=== PATIENT | male | born 1960 | race American Indian/Alaskan Native ===

== ENCOUNTER 2018-08-15 11:05 | Inpatient (IN) | payer MEDICARE ==
--- NOTE | 2018-08-15 11:18 | Emergency Department Report ---
Blank Doc - Documentation Documentation: 58 y o male with no PMH presents to ED cc of Vomitting x 2 weeks states he went to PCP 2 weeks ago and was given medicine states its not working DEnies ABd pain, diarrhea, No active vomitting ACC eval
[2018-08-15 11:41] LABS: Basophils # (Auto) 0.1 K/mm3 (0.0-0.1); Basophils % (Auto) 0.8 % (0.0-1.8); Eosinophils # (Auto) 0.1 K/mm3 (0.0-0.4); Eosinophils % (Auto) 1.4 % (0.0-4.3); Hematocrit 45.2 % (35.5-45.6); Hemoglobin 15.3 gm/dl (11.8-15.2); Lymphocytes # (Auto) 1.5 K/mm3 (1.2-5.4); Lymphocytes % (Auto) 17.4 % (13.4-35.0); Mean Corpuscular HGB Conc 34 % (32-34); Mean Corpuscular Volume 104 fl (84-94); Monocytes # (Auto) 0.8 K/mm3 (0.0-0.8); Monocytes % (Auto) 9.1 % (0.0-7.3); Platelet Count 251 K/mm3 (140-440); Red Blood Count 4.36 M/mm3 (3.65-5.03); Red Cell Distribution Width 12.7 % (13.2-15.2)
[2018-08-15] MEDS ORDERED: NACL 0.9% 1000 ML 1,000 ML IV ONE (11:41)
[2018-08-15 11:59] LABS: BUN/Creatinine Ratio 13; Blood Urea Nitrogen 17 mg/dL (9-20); Calcium 9.2 mg/dL (8.4-10.2); Hemolysis Index 8
[2018-08-15 12:10] LABS: Alanine Aminotransferase 32 units/L (7-56); Albumin 4.1 g/dL (3.9-5)
[2018-08-15 12:15] LABS: Bilirubin,Direct < 0.2 mg/dL (0-0.2)
[2018-08-15 12:46] LABS: Bacteria,Urine 1+ /HPF (Negative); Bilirubin,Urine NEG (Negative); Blood,Urine NEG (Negative); Color,Urine Amber (Yellow); Mucus,Urine 3+ /HPF
--- NOTE | 2018-08-15 13:37 | Cat Scan Report ---
CT ABDOMEN PELVIS WITH CONTRAST: HISTORY: Nausea and vomiting for 2 weeks. COMPARISON: none. TECHNIQUE: Helical CT in 1.25mm intervals following IV contrast. Sagittal and coronal reconstructions. FINDINGS: Lung bases: Normal. Liver: There is mild diffuse fatty infiltration of the liver. Multiple liver lesions are identified which appear consistent with cavernous hemangiomas. 3 hemangiomas are identified in the right hepatic lobe with the largest measuring 4.4 cm. There are 2 hemangiomas in the left hepatic lobe measuring up to 1.5 cm. No suspicious liver mass is appreciated. Biliary system: Normal. Pancreas: Normal. Spleen: Normal. Kidneys/ureters/bladder: Normal. Adrenal glands: Normal. Aorta: Normal. Intestines: There is moderate dilatation of the stomach and first and second segments of the duodenum. There is a sharp transition point in the distal transverse duodenum which appears to obstruct. There is an irregular mass like lesion in this area concerning for a neoplasm. Distal to this the small bowel loops and colon are decompressed. Appendix: Normal. Ascites: None. Adenopathy: None. Musculoskeletal: Intact. Moderate degenerative changes in the spine. No suspicious bony lesion. IMPRESSION: There is an obstructing lesion in the transverse duodenum concerning for a neoplasm. Consider direct visualization with endoscopy. Multiple cavernous hemangiomas of the liver.
--- NOTE | 2018-08-15 14:31 | History and Physical Report ---
History of Present Illness Chief complaint: I cant keep anything down History of present illness: 58 YO Male with BPH S/P Prostate Surgery presents to ED for evaluation. Pt states that he has experienced nausea and multiple episodes of vomiting, and inability to tolerate solid food over the past 2 weeks with persistent symptoms over the same time frame. Pt acknowledges 40lbs weight loss over the past 2 months. Pt denies fever, chills, productive cough, CP, Palpitations, known ill contacts, ingestion of food/water from new/different sources. Pt acknowledges family history of cancer, with history of Gastric Cancer in his father. Pt seen and evaluated in ED and found to have Duodenal mass suspicious for malignancy as well as bowel obstruction, as well as UTI. Pt admitted to medical floor. GI consulted in ED. No prior admission for review. No medication listed for reconciliation at time of admission. Past History Past Medical History: other (BPH) Past Surgical History: Other (Cervical spine,Prostate surgery) Social history: , lives with family Family history: cancer Medications and Allergies Allergies Allergy/AdvReac Type Severity Reaction Status Date / Time No Known Allergies Allergy Verified 08/15/18 11:09 Home Medications Medication Instructions Recorded Confirmed Last Taken Type No Known Home Medications [No 08/15/18 08/15/18 Unknown History Reported Home Medications] Review of Systems Constitutional: weight loss, no weight gain, no fever, no chills, no sweats, no night sweats Ears, nose, mouth and throat: no ear pain, no ear discharge, no tinnitis, no decreased hearing, no nose pain, no nasal congestion, no nasal discharge Cardiovascular: no chest pain, no orthopnea, no palpitations, no rapid/irregular heart beat, no edema Respiratory: no cough, no cough with sputum, no excessive sputum, no hemoptysis, no shortness of breath Gastrointestinal: nausea, vomiting, loss of appetite, no abdominal pain, no diarrhea, no hematemesis, no BRBPR, no melena, no hematochezia Genitourinary Male: no hematuria, no flank pain, no discharge, no urinary frequency, no urinary hesitancy Rectal: no pain, no incontinence, no bleeding Musculoskeletal: no neck stiffness, no neck pain, no shooting arm pain, no arm numbness/tingling, no low back pain, no shooting leg pain Integumentary: no rash, no pruritis, no redness, no sores, no wounds, no jaundice Neurological: no transient paralysis, no paralysis, no weakness, no parathesias, no numbness, no tingling Psychiatric: no memory loss, no change in sleep habits, no insomnia, no hypersomnia, no change in appetite, no change in libido Endocrine: no cold intolerance, no heat intolerance, no polyphagia, no excessive thirst, no polydipsia, no polyuria Hematologic/Lymphatic: no easy bruising, no easy bleeding, no lymphadenopathy, no lymphedema Allergic/Immunologic: no urticaria, no persistent infections, no anaphylaxis Exam - Constitutional Vitals: Temp Pulse Resp BP Pulse Ox 97.8 F 112 H 18 115/74 97 08/15/18 11:15 08/15/18 11:15 08/15/18 11:15 08/15/18 11:15 08/15/18 11:15 General appearance: Present: mild distress - EENT Eyes: Present: PERRL ENT: hearing intact, clear oral mucosa - Neck Neck: Present: supple, normal ROM - Respiratory Respiratory effort: normal Respiratory: bilateral: CTA - Cardiovascular Heart Sounds: Present: S1 & S2. Absent: rub, click - Extremities Extremities: pulses symmetrical, No edema Peripheral Pulses: within normal limits - Abdominal General gastrointestinal: Present: soft, non-tender, non-distended, normal bowel sounds Male genitourinary: Present: normal - Integumentary Integumentary: Present: clear, warm, dry - Musculoskeletal Musculoskeletal: gait normal, strength equal bilaterally - Psychiatric Psychiatric: appropriate mood/affect, intact judgment & insight - Neurologic Neurologic: CNII-XII intact, moves all extremities Results - Labs CBC & Chem 7: 08/15/18 11:34 08/15/18 11:34 Labs: Abnormal lab results 08/15/18 08/15/18 08/15/18 Range/Units 11:34 11:34 12:25 Hgb 15.3 H (11.8-15.2) gm/dl MCV 104 H (84-94) fl MCH 35 H (28-32) pg RDW 12.7 L (13.2-15.2) % [place] % (Auto) 9.1 H (0.0-7.3) % Seg Neutrophils % 71.3 H (40.0-70.0) % Potassium 3.3 L (3.6-5.0) mmol/L Chloride 95.4 L (98-107) mmol/L Glucose 118 H (75-100) mg/dL Lipase 70 H (13-60) units/L Urine WBC (Auto) 75.0 H (0.0-6.0) /HPF Assessment and Plan - Patient Problems (1) Duodenal mass Current Visit: Yes Status: Acute Plan to address problem: GI consulted in ED and pending endoscopy and biopsy, IVF resuscitation therapy, NPO after midnight, suspect malignancy. (2) UTI (urinary tract infection) Current Visit: Yes Status: Acute Qualifiers: Encounter type: initial encounter Plan to address problem: IV antibiotic therapy, CBC, urinalysis, (3) Hypokalemia Current Visit: Yes Status: Acute Plan to address problem: Repleted with diet (4) SBO (small bowel obstruction) Current Visit: Yes Status: Acute Plan to address problem: GI consulted, NPI at midnight, CT Abdomen/Pelvis, pending endoscopy in am. NO NGT at this time. Pt does not have abdominal distention, and acknowledges flatus and bowel movement daily (5) DVT prophylaxis Current Visit: Yes Status: Acute Plan to address problem: SCD to BLE while in bed, Pt ambulating independently and without restriction
[2018-08-15] MEDS ORDERED: ATIVAN IV ONE (14:32)
[2018-08-15] MEDS ORDERED: MORPHINE IV ONE (14:32)
[2018-08-15] MEDS ORDERED: PROVENTIL IH PRN (14:33)
[2018-08-15] MEDS ORDERED: TYLENOL PO PRN (14:33)
[2018-08-15] MEDS ORDERED: SODIUM CHLORIDE FLUSH SYRINGE 10 ML IV PRN (14:33)
[2018-08-15] MEDS ORDERED: ZOFRAN IV PRN (14:33)
--- NOTE | 2018-08-15 14:36 | Emergency Department Report ---
ED N/V/D HPI - General Chief complaint: Abdominal Pain Stated complaint: VOMITING Time Seen by Provider: 08/15/18 11:16 Source: patient Mode of arrival: Ambulatory Limitations: No Limitations - History of Present Illness Initial comments: Patient is a 58-year-old [place] male who is presenting with 2 weeks of nausea vomiting and inability to keep anything down. Patient has had some mild weight loss over this timeframe as well. Patient states he is still passing flatus but has not had a bowel movement in approximately a week. Patient denies any a bdominal pain at this time. Patient states he does have some mild weakness is developing secondary to not eating. - Related Data Allergies Allergy/AdvReac Type Severity Reaction Status Date / Time No Known Allergies Allergy Verified 08/15/18 11:09 ED Review of Systems ROS: Stated complaint: VOMITING Other details as noted in HPI Comment: All other systems reviewed and negative ED Past Medical Hx - Past Medical History Previous Medical History?: No - Surgical History Past Surgical History?: Yes Additional Surgical History: cervical spine surgery, prostate surgery - Social History Smoking Status: Never Smoker Substance Use Type: Marijuana ED Physical Exam - General Limitations: No Limitations General appearance: alert, in no apparent distress - Head Head exam: Present: atraumatic, normocephalic - Eye Eye exam: Present: normal appearance. Absent: PERRL, EOMI - ENT ENT exam: Present: mucous membranes moist - Neck Neck exam: Present: normal inspection - Respiratory Respiratory exam: Present: normal lung sounds bilaterally. Absent: respiratory distress, wheezes, rales, rhonchi - Cardiovascular Cardiovascular Exam: Present: regular rate, normal rhythm. Absent: systolic murmur, diastolic murmur, rubs, gallop - GI/Abdominal GI/Abdominal exam: Present: soft, normal bowel sounds, hypoactive bowel sounds. Absent: distended, tenderness, guarding, rebound - Rectal Rectal exam: Present: deferred - Extremities Exam Extremities exam: Present: normal inspection - Back Exam Back exam: Present: normal inspection - Neurological Exam Neurological exam: Present: alert, oriented X3 - Psychiatric Psychiatric exam: Present: normal affect, normal mood - Skin Skin exam: Present: warm, dry, intact, normal color. Absent: rash ED Course Vital Signs 08/15/18 11:15 Temperature 97.8 F Pulse Rate 112 H Respiratory 18 Rate Blood Pressure 115/74 O2 Sat by Pulse 97 Oximetry ED Medical Decision Making - Lab Data Result diagrams: 08/15/18 11:34 08/15/18 11:34 Labs 08/15/18 08/15/18 08/15/18 11:34 11:34 12:25 WBC 8.8 RBC 4.36 Hgb 15.3 H Hct 45.2 MCV 104 H MCH 35 H MCHC 34 RDW 12.7 L Plt Count 251 Lymph % (Auto) 17.4 [place] % (Auto) 9.1 H Eos % (Auto) 1.4 Baso % (Auto) 0.8 Lymph # 1.5 [place] # 0.8 Eos # 0.1 Baso # 0.1 Seg Neutrophils % 71.3 H Seg Neutrophils # 6.3 Sodium 138 Potassium 3.3 L Chloride 95.4 L Carbon Dioxide 28 Anion Gap 18 BUN 17 Creatinine 1.3 Estimated GFR > 60 BUN/Creatinine Ratio 13 Glucose 118 H Calcium 9.2 Total Bilirubin 0.70 Direct Bilirubin < 0.2 AST 18 ALT 32 Alkaline Phosphatase 69 Total Protein 8.1 Albumin 4.1 Albumin/Globulin Ratio 1.0 Lipase 70 H Urine Color [place] Urine Turbidity Slightly-cloudy Urine pH 5.0 Ur Specific [place] 1.030 Urine Protein 30 mg/dl Urine Glucose (UA) Neg Urine Ketones 20 Urine Blood Neg Urine Nitrite Neg Urine Bilirubin Neg Urine Urobilinogen 4.0 Ur Leukocyte Esterase Mod Urine WBC (Auto) 75.0 H Urine RBC (Auto) 9.0 U Epithel Cells (Auto) 3.0 Urine Bacteria (Auto) 1+ Urine Mucus 3+ - Radiology Data Referring Physician: LISA HERNDON Patient Name: ROSE GREEN Date of : 1960 Sex: Male Report Date: 2018-08-15 Report Status: Finalized Findings [facility] [address] [place] [address] Cat Scan Report Signed Patient: ROSE GREEN MR#: [id number] : 1960 Acct:[id number] Age/Sex: 58 / M ADM Date: 08/15/18 Loc: ED Attending Dr: Ordering Physician: LISA HERNDON MD Date of Service: 08/15/18 Procedure(s): CT abdomen pelvis w con Accession Number(s): [id number] cc: LISA HERNDON MD CT ABDOMEN PELVIS WITH CONTRAST: HISTORY: Nausea and vomiting for 2 weeks. COMPARISON: none. TECHNIQUE: Helical CT in 1.25mm intervals following IV contrast. Sagittal and coronal reconstructions. FINDINGS: Lung bases: Normal. Liver: There is mild diffuse fatty infiltration of the liver. Multiple liver lesions are identified which appear consistent with cavernous hemangiomas. 3 hemangiomas are identified in the right hepatic lobe with the largest measuring 4.4 cm. There are 2 hemangiomas in the left hepatic lobe measuring up to 1.5 cm. No suspicious liver mass is appreciated. Biliary system: Normal. Pancreas: Normal. Spleen: Normal. Kidneys/ureters/bladder: Normal. Adrenal glands: Normal. Aorta: Normal. Intestines: There is moderate dilatation of the stomach and first and second segments of the duodenum. There is a sharp transition point in the distal transverse duodenum which appears to obstruct. There is an irregular mass like lesion in this area concerning for a neoplasm. Distal to this the small bowel loops and colon are decompressed. Appendix: Normal. Ascites: None. Adenopathy: None. Musculoskeletal: Intact. Moderate degenerative changes in the spine. No suspicious bony lesion. IMPRESSION: There is an obstructing lesion in the transverse duodenum concerning for a neoplasm. Consider direct visualization with endoscopy. Multiple cavernous hemangiomas of the liver. Transcribed By: TTR Dictated By: WILMA VARGAS JR, MD Electronically Authenticated By: WILMA VARGAS JR, MD Signed Date/Time: 08/15/18 1332 DD/ 1326 TD/TT: 08/15/18 1332 - Medical Decision Making Patient is a 58-year-old -[place] male who is presenting with nausea and vomiting for 2 weeks. Patient had a CT scan that shows he does have obstructive area at the duodenum. This is likely a tumor. Patient will be admitted to the hospitalist service and GI has been consulted. Critical care attestation.: If time is entered above; I have spent that time in minutes in the direct care of this critically ill patient, excluding procedure time. ED Disposition Clinical Impression: SBO (small bowel obstruction), Duodenal anomaly Disposition: OP ADMIT IP TO THIS HOSP Is pt being admited?: Yes Does the pt Need Aspirin: No Condition: Stable Time of Disposition: 14:36
[2018-08-15] MEDS: LEVAQUIN 500MG/100ML 500 MG/100 ML BAG IV SCH (14:49)
--- NOTE | 2018-08-15 15:16 | Gastroenterology Consultation ---
<FLOYD BRAND - Last Filed: 08/15/18 15:24> History of Present Illness - Reason for Consult Consult date: 08/15/18 duodenal mass with obstruction Requesting physician: LISA HERNDON - History of Present Illness Patient is a 58 y/o male with PMH of BPH and chronic back pain who presented to ED with c/o N/V x 2 weeks with associated inability to tolerate PO, wt loss (~15-20lbs), and change in bowel habit (constipation). Upon admission, he underwent an abdominal CT with findings suggestive of an obstructing duodenal mall with concern for malignancy to which GI has been consulted. This afternoon patient was sitting on the side of the stretcher w/o acute distress and at bedside. Reports N/V after any PO intake x 2 weeks. Denies fever, CP, SOB, abdominal pain, dysphagia, odynophagia, or signs of bleeding. No hx of PUD or previous EGD. Fhx of gastric cancer with his father. Past History Past Medical History: other (BPH, chronic back pain) Past Surgical History: hernia repair, Other (Cervical spine,Prostate surgery) Social history: , lives with family Family history: cancer (gastric with father) Medications and Allergies Allergies Allergy/AdvReac Type Severity Reaction Status Date / Time No Known Allergies Allergy Verified 08/15/18 11:09 Home Medications Medication Instructions Recorded Confirmed Last Taken Type No Known Home Medications [No 08/15/18 08/15/18 Unknown History Reported Home Medications] Active Meds: Active Medications Acetaminophen (Tylenol) 650 mg PO Q4H PRN PRN Reason: Pain MILD(1-3)/Fever >100.5/JOSE Albuterol (Proventil) 2.5 mg IH Q4HRT PRN PRN Reason: Shortness Of Breath Levofloxacin/Dextrose (Levaquin 500mg/100ml) 500 mg in 100 mls @ 100 mls/hr IV Q24HR JACQUELYN; Protocol Last Admin: 08/15/18 14:49 Dose: 100 mls/hr Documented by: Ondansetron HCl (Zofran) 4 mg IV Q8H PRN PRN Reason: Nausea And Vomiting Sodium Chloride (Sodium Chloride Flush Syringe 10 Ml) 10 ml IV BID JACQUELYN Sodium Chloride (Sodium Chloride Flush Syringe 10 Ml) 10 ml IV PRN PRN PRN Reason: LINE FLUSH medications reviewed/updated as required Review of Systems - Review of Systems All systems: negative Constitutional: weight loss Gastrointestinal: nausea, vomiting, constipation Exam - Constitutional Vital Signs: Temp Pulse Resp BP Pulse Ox 97.8 F 112 H 18 115/74 97 08/15/18 11:15 08/15/18 11:15 08/15/18 11:15 08/15/18 11:15 08/15/18 11:15 General appearance: no acute distress - Respiratory Respiratory effort: normal Respiratory: bilateral: CTA - Cardiovascular Rhythm: regular - Gastrointestinal General gastrointestinal: Present: soft, non-tender, distended (slight), hypoactive bowel sounds - Neurologic Neurological: alert and oriented x3 - Labs CBC & Chem 7: 08/15/18 11:34 08/15/18 11:34 Lab Results: Laboratory Results - last 24 hr 08/15/18 08/15/18 08/15/18 11:34 11:34 12:25 WBC 8.8 RBC 4.36 Hgb 15.3 H Hct 45.2 MCV 104 H MCH 35 H MCHC 34 RDW 12.7 L Plt Count 251 Lymph % (Auto) 17.4 [place] % (Auto) 9.1 H Eos % (Auto) 1.4 Baso % (Auto) 0.8 Lymph # 1.5 [place] # 0.8 Eos # 0.1 Baso # 0.1 Seg Neutrophils % 71.3 H Seg Neutrophils # 6.3 Sodium 138 Potassium 3.3 L Chloride 95.4 L Carbon Dioxide 28 Anion Gap 18 BUN 17 Creatinine 1.3 Estimated GFR > 60 BUN/Creatinine Ratio 13 Glucose 118 H Calcium 9.2 Total Bilirubin 0.70 Direct Bilirubin < 0.2 AST 18 ALT 32 Alkaline Phosphatase 69 Total Protein 8.1 Albumin 4.1 Albumin/Globulin Ratio 1.0 Lipase 70 H Urine Color [place] Urine Turbidity Slightly-cloudy Urine pH 5.0 Ur Specific [place] 1.030 Urine Protein 30 mg/dl Urine Glucose (UA) Neg Urine Ketones 20 Urine Blood Neg Urine Nitrite Neg Urine Bilirubin Neg Urine Urobilinogen 4.0 Ur Leukocyte Esterase Mod Urine WBC (Auto) 75.0 H Urine RBC (Auto) 9.0 U Epithel Cells (Auto) 3.0 Urine Bacteria (Auto) 1+ Urine Mucus 3+ Assessment and Plan 1.N/V 2.inability to tolerate PO 3.wt loss 4.duodenal obstructing mass seen on CT 5.Fhx of gastric CA (father) -EGD tomorrow for further evaluation of duodenal mass -Keep NPO -NGT to LIS -start on PPI -recommend surgery consult -continue supportive care -will follow <PIO PARR - Last Filed: 08/15/18 16:03> Medications and Allergies Active Meds: Active Medications Acetaminophen (Tylenol) 650 mg PO Q4H PRN PRN Reason: Pain MILD(1-3)/Fever >100.5/JOSE Albuterol (Proventil) 2.5 mg IH Q4HRT PRN PRN Reason: Shortness Of Breath Levofloxacin/Dextrose (Levaquin 500mg/100ml) 500 mg in 100 mls @ 100 mls/hr IV Q24HR JACQUELYN; Protocol Last Admin: 08/15/18 14:49 Dose: 100 mls/hr Documented by: Ondansetron HCl (Zofran) 4 mg IV Q8H PRN PRN Reason: Nausea And Vomiting Pantoprazole Sodium (Protonix) 40 mg IV BID JACQUELYN Sodium Chloride (Sodium Chloride Flush Syringe 10 Ml) 10 ml IV BID JACQUELYN Sodium Chloride (Sodium Chloride Flush Syringe 10 Ml) 10 ml IV PRN PRN PRN Reason: LINE FLUSH Exam - Constitutional Vital Signs: Temp Pulse Resp BP Pulse Ox 98.5 F 104 H 16 106/82 97 08/15/18 15:17 08/15/18 15:17 08/15/18 15:17 08/15/18 15:17 08/15/18 15:17 - Labs CBC & Chem 7: 08/15/18 11:34 08/15/18 11:34 Lab Results: Laboratory Results - last 24 hr 08/15/18 08/15/18 08/15/18 11:34 11:34 12:25 WBC 8.8 RBC 4.36 Hgb 15.3 H Hct 45.2 MCV 104 H MCH 35 H MCHC 34 RDW 12.7 L Plt Count 251 Lymph % (Auto) 17.4 [place] % (Auto) 9.1 H Eos % (Auto) 1.4 Baso % (Auto) 0.8 Lymph # 1.5 [place] # 0.8 Eos # 0.1 Baso # 0.1 Seg Neutrophils % 71.3 H Seg Neutrophils # 6.3 Sodium 138 Potassium 3.3 L Chloride 95.4 L Carbon Dioxide 28 Anion Gap 18 BUN 17 Creatinine 1.3 Estimated GFR > 60 BUN/Creatinine Ratio 13 Glucose 118 H Calcium 9.2 Total Bilirubin 0.70 Direct Bilirubin < 0.2 AST 18 ALT 32 Alkaline Phosphatase 69 Total Protein 8.1 Albumin 4.1 Albumin/Globulin Ratio 1.0 Lipase 70 H Urine Color [place] Urine Turbidity Slightly-cloudy Urine pH 5.0 Ur Specific [place] 1.030 Urine Protein 30 mg/dl Urine Glucose (UA) Neg Urine Ketones 20 Urine Blood Neg Urine Nitrite Neg Urine Bilirubin Neg Urine Urobilinogen 4.0 Ur Leukocyte Esterase Mod Urine WBC (Auto) 75.0 H Urine RBC (Auto) 9.0 U Epithel Cells (Auto) 3.0 Urine Bacteria (Auto) 1+ Urine Mucus 3+ Assessment and Plan Pt seen and examined. Plan as noted.
--- NOTE | 2018-08-15 15:28 | Consultation ---
History of Present Illness Consult date: 08/15/18 Chief complaint: n/v - History of present illness History of present illness: 58 yo M with no PMhx presents with n/v x 2 weeks, inability to tolerate PO, and inability to pass flatus. He states this started suddenly as has gradually gotten worse. He has lost 20 lbs or more during this time due to inability to eat. He denies abdominal pain. He has never had a prior episode like this. He denies f/c, cp, sob. He has had some small BMs. Never had a cscope. Past History Past Medical History: other (BPH) Past Surgical History: Other (Cervical spine,Prostate surgery) Social history: , lives with family Family history: cancer (father - stomach vs lung) Medications and Allergies Allergies Allergy/AdvReac Type Severity Reaction Status Date / Time No Known Allergies Allergy Verified 08/15/18 11:09 Home Medications Medication Instructions Recorded Confirmed Last Taken Type No Known Home Medications [No 08/15/18 08/15/18 Unknown History Reported Home Medications] Active Meds: Active Medications Acetaminophen (Tylenol) 650 mg PO Q4H PRN PRN Reason: Pain MILD(1-3)/Fever >100.5/JOSE Albuterol (Proventil) 2.5 mg IH Q4HRT PRN PRN Reason: Shortness Of Breath Levofloxacin/Dextrose (Levaquin 500mg/100ml) 500 mg in 100 mls @ 100 mls/hr IV Q24HR JACQUELYN; Protocol Last Admin: 08/15/18 14:49 Dose: 100 mls/hr Documented by: Ondansetron HCl (Zofran) 4 mg IV Q8H PRN PRN Reason: Nausea And Vomiting Pantoprazole Sodium (Protonix) 40 mg IV BID JACQUELYN Sodium Chloride (Sodium Chloride Flush Syringe 10 Ml) 10 ml IV BID JACQUELYN Sodium Chloride (Sodium Chloride Flush Syringe 10 Ml) 10 ml IV PRN PRN PRN Reason: LINE FLUSH Review of Systems All systems: negative (10 pt ROS performed and negative except for that listed in HPI) Exam Vital Signs Temp Pulse Resp BP Pulse Ox 97.8 F 112 H 18 115/74 97 08/15/18 11:15 08/15/18 11:15 08/15/18 11:15 08/15/18 11:15 08/15/18 11:15 Narrative exam: Gen: AAOx3. NAD ENT: NO scleral icterus or conjunctival pallor CV: s1, S2+ resp; even and unlabored Abd: soft, NT, ND Ext: no c/c/e Results - Labs 08/15/18 11:34 08/15/18 11:34 Abnormal lab results 08/15/18 08/15/18 08/15/18 Range/Units 11:34 11:34 12:25 Hgb 15.3 H (11.8-15.2) gm/dl MCV 104 H (84-94) fl MCH 35 H (28-32) pg RDW 12.7 L (13.2-15.2) % [place] % (Auto) 9.1 H (0.0-7.3) % Seg Neutrophils % 71.3 H (40.0-70.0) % Potassium 3.3 L (3.6-5.0) mmol/L Chloride 95.4 L (98-107) mmol/L Glucose 118 H (75-100) mg/dL Lipase 70 H (13-60) units/L Urine WBC (Auto) 75.0 H (0.0-6.0) /HPF Diabetes panel 08/15/18 Range/Units 11:34 Sodium 138 (137-145) mmol/L Potassium 3.3 L (3.6-5.0) mmol/L Chloride 95.4 L (98-107) mmol/L Carbon Dioxide 28 (22-30) mmol/L BUN 17 (9-20) mg/dL Creatinine 1.3 (0.8-1.5) mg/dL Glucose 118 H (75-100) mg/dL Calcium 9.2 (8.4-10.2) mg/dL AST 18 (5-40) units/L ALT 32 (7-56) units/L Alkaline Phosphatase 69 (35-129) units/L Total Protein 8.1 (6.3-8.2) g/dL Albumin 4.1 (3.9-5) g/dL Calcium panel 08/15/18 Range/Units 11:34 Calcium 9.2 (8.4-10.2) mg/dL Albumin 4.1 (3.9-5) g/dL Pituitary panel 08/15/18 Range/Units 11:34 Sodium 138 (137-145) mmol/L Potassium 3.3 L (3.6-5.0) mmol/L Chloride 95.4 L (98-107) mmol/L Carbon Dioxide 28 (22-30) mmol/L BUN 17 (9-20) mg/dL Creatinine 1.3 (0.8-1.5) mg/dL Glucose 118 H (75-100) mg/dL Calcium 9.2 (8.4-10.2) mg/dL Adrenal panel 08/15/18 Range/Units 11:34 Sodium 138 (137-145) mmol/L Potassium 3.3 L (3.6-5.0) mmol/L Chloride 95.4 L (98-107) mmol/L Carbon Dioxide 28 (22-30) mmol/L BUN 17 (9-20) mg/dL Creatinine 1.3 (0.8-1.5) mg/dL Glucose 118 H (75-100) mg/dL Calcium 9.2 (8.4-10.2) mg/dL Total Bilirubin 0.70 (0.1-1.2) mg/dL AST 18 (5-40) units/L ALT 32 (7-56) units/L Alkaline Phosphatase 69 (35-129) units/L Total Protein 8.1 (6.3-8.2) g/dL Albumin 4.1 (3.9-5) g/dL - Imaging CT scan - abdomen: report reviewed, image reviewed CT scan - pelvis: report reviewed, image reviewed Assessment and Plan 58 yo M with obstructing duodenal mass Plan: 1. Place NGT and keep to LIWS 2. NPO 3. IVF 4. EGD scheduled for tomorrow 5. CXR to r/o metastatic disease 6. No evidence of metastatic disease on CT A/P. Will follow up on results of endoscopy. 7. Explained results and plan to patient and his . Thank you, please call with questions
[2018-08-15] MEDS: PROTONIX IV SCH ×2 (18:52→22:00)
--- NOTE | 2018-08-15 21:49 | XRay Report ---
PROCEDURE: XR CHEST ROUTINE 2V TECHNIQUE: PA and lateral chest radiographs were obtained. HISTORY: obstructing duodenal mass, r/o mets COMPARISONS: None. FINDINGS: Heart: Normal. Mediastinum/Vessels: Normal. Lungs/Pleural space: Normal. Bony thorax: No acute osseous abnormality. IMPRESSION: Normal examination. This document is electronically signed by Kev Mayorga MD., August 15 2018 09:22:17 PM ET
[2018-08-15] MEDS: SODIUM CHLORIDE FLUSH SYRINGE 10 ML IV SCH (22:00)
[2018-08-16] MEDS: PROTONIX IV SCH ×2 (09:29→21:53)
[2018-08-16] MEDS: LEVAQUIN 500MG/100ML 500 MG/100 ML BAG IV SCH (09:29)
[2018-08-16] MEDS: SODIUM CHLORIDE FLUSH SYRINGE 10 ML IV SCH ×2 (09:30→21:53)
--- NOTE | 2018-08-16 11:09 | Event Note ---
Date: 08/16/18 Per nursing notes, NGT was inserted but patient requested it be removed immediately. NGT was not reinserted overnight. Spoke with RN this am and i nstructed them to place NGT this morning because patient will not be able to have endoscopy without decompressing the stomach.
[2018-08-16 13:15] LABS: BUN/Creatinine Ratio 14; Blood Urea Nitrogen 14 mg/dL (9-20); Calcium 9.1 mg/dL (8.4-10.2); Hemolysis Index 9
--- NOTE | 2018-08-16 13:48 | Progress Note ---
Assessment and Plan - Patient Problems (1) Duodenal mass Current Visit: Yes Status: Acute Plan to address problem: Plan no mass no evidence of metastatic disease on CT or chest x-ray. Obstructive lesion in the transverse duodenum. Scheduled for EGD to evaluate neoplasm. Performed in the a.m. (2) Hypokalemia Current Visit: Yes Status: Acute Plan to address problem: Patient had NG tube no current IV fluids. Most likely has lost K via the gastrointestinal tract. We'll add potassium in D5 normal saline. Repeat labs in a.m. Await EGD today. (3) SBO (small bowel obstruction) Current Visit: Yes Status: Acute Plan to address problem: G-tube suctioning GI following. Obtain electrolytes in a.m. History Interval history: Patient is without pain today. Abdomen feels better. Still NG tube suctioning. Scheduled for EGD in the a.m. Set L spoke with at bedside all questions and concerns answered to their satisfaction. Hospitalist Physical - Constitutional Vitals: Temp Pulse Resp BP Pulse Ox 97.9 F 81 18 112/85 97 08/16/18 13:19 08/16/18 13:19 08/16/18 13:19 08/16/18 13:19 08/16/18 13:19 General appearance: Present: mild distress - EENT Eyes: Present: PERRL, EOM intact ENT: hearing intact, clear oral mucosa, dentition normal, other (NG tube to suctioning.) - Neck Neck: Present: supple, normal ROM - Respiratory Respiratory effort: normal Respiratory: bilateral: CTA - Cardiovascular Rhythm: regular Heart Sounds: Present: S1 & S2 - Extremities Extremities: no ischemia, pulses intact, pulses symmetrical, No edema, normal temperature, normal color Peripheral Pulses: within normal limits - Abdominal General gastrointestinal: other (slightly distended hypoactive bowel sounds. Tender only to deep palpation.) - Integumentary Integumentary: Present: clear, warm, dry - Psychiatric Psychiatric: appropriate mood/affect, intact judgment & insight, memory intact - Neurologic Neurologic: CNII-XII intact, focal deficits, moves all extremities Results - Labs CBC & Chem 7: 08/15/18 11:34 08/16/18 12:07 Labs: Laboratory Last Values WBC 8.8 K/mm3 (4.5-11.0) 08/15/18 11:34 RBC 4.36 M/mm3 (3.65-5.03) 08/15/18 11:34 Hgb 15.3 gm/dl (11.8-15.2) H 08/15/18 11:34 Hct 45.2 % (35.5-45.6) 08/15/18 11:34 MCV 104 fl (84-94) H 08/15/18 11:34 MCH 35 pg (28-32) H 08/15/18 11:34 MCHC 34 % (32-34) 08/15/18 11:34 RDW 12.7 % (13.2-15.2) L 08/15/18 11:34 Plt Count 251 K/mm3 (140-440) 08/15/18 11:34 Lymph % (Auto) 17.4 % (13.4-35.0) 08/15/18 11:34 Bollinger % (Auto) 9.1 % (0.0-7.3) H 08/15/18 11:34 Eos % (Auto) 1.4 % (0.0-4.3) 08/15/18 11:34 Baso % (Auto) 0.8 % (0.0-1.8) 08/15/18 11:34 Lymph # 1.5 K/mm3 (1.2-5.4) 08/15/18 11:34 Bollinger # 0.8 K/mm3 (0.0-0.8) 08/15/18 11:34 Eos # 0.1 K/mm3 (0.0-0.4) 08/15/18 11:34 Baso # 0.1 K/mm3 (0.0-0.1) 08/15/18 11:34 Seg Neutrophils % 71.3 % (40.0-70.0) H 08/15/18 11:34 Seg Neutrophils # 6.3 K/mm3 (1.8-7.7) 08/15/18 11:34 Sodium 141 mmol/L (137-145) 08/16/18 12:07 Potassium 3.6 mmol/L (3.6-5.0) 08/16/18 12:07 Chloride 100.3 mmol/L (98-107) 08/16/18 12:07 Carbon Dioxide 21 mmol/L (22-30) L D 08/16/18 12:07 23 mmol/L 08/16/18 12:07 BUN 14 mg/dL (9-20) 08/16/18 12:07 1.0 mg/dL (0.8-1.5) 08/16/18 12:07 Estimated GFR > 60 ml/min 08/16/18 12:07 14 % 08/16/18 12:07 Glucose 86 mg/dL (75-100) 08/16/18 12:07 Calcium 9.1 mg/dL (8.4-10.2) 08/16/18 12:07 Phosphorus 3.10 mg/dL (2.5-4.5) 08/16/18 12:07 Magnesium 2.20 mg/dL (1.7-2.3) 08/16/18 12:07 0.70 mg/dL (0.1-1.2) 08/15/18 11:34 < 0.2 mg/dL (0-0.2) 08/15/18 11:34 AST 18 units/L (5-40) 08/15/18 11:34 ALT 32 units/L (7-56) 08/15/18 11:34 69 units/L (35-129) 08/15/18 11:34 8.1 g/dL (6.3-8.2) 08/15/18 11:34 4.1 g/dL (3.9-5) 08/15/18 11:34 1.0 % 08/15/18 11:34 70 units/L (13-60) H 08/15/18 11:34 Aylin (Yellow) 08/15/18 12:25 Slightly-cloudy (Clear) 08/15/18 12:25 5.0 (5.0-7.0) 08/15/18 12:25 Ur Specific [place] 1.030 (1.003-1.030) 08/15/18 12:25 30 mg/dl mg/dL (Negative) 08/15/18 12:25 Neg mg/dL (Negative) 08/15/18 12:25 20 mg/dL (Negative) 08/15/18 12:25 Neg (Negative) 08/15/18 12:25 Neg (Negative) 08/15/18 12:25 Neg (Negative) 08/15/18 12:25 4.0 mg/dL (<2.0) 08/15/18 12:25 Ur Leukocyte Esterase Mod (Negative) 08/15/18 12:25 75.0 /HPF (0.0-6.0) H 08/15/18 12:25 9.0 /HPF (0.0-6.0) 08/15/18 12:25 U Epithel Cells (Auto) 3.0 /HPF (0-13.0) 08/15/18 12:25 1+ /HPF (Negative) 08/15/18 12:25 3+ /HPF 08/15/18 12:25 Active Medications - Current Medications Current Medications: Generic Name Dose Route Start Last Admin Trade Name Freq PRN Reason Stop Dose Admin Acetaminophen 650 mg 08/15/18 14:33 Tylenol PO Q4H PRN Pain MILD(1-3)/Fever >100.5/JOSE Albuterol 2.5 mg 08/15/18 14:33 Proventil IH Q4HRT PRN Shortness Of Breath Levofloxacin/Dextrose 500 mg in 100 mls @ 100 mls/hr 08/15/18 15:00 08/16/18 09:29 Levaquin 500mg/100ml IV 100 mls/hr Q24HR JACQUELYN Administration Protocol Potassium Chloride/Dextrose/Sod Cl 20 meq in 1,000 mls @ 75 mls/hr 08/16/18 12:00 D5w/Ns W/Kcl 20meq IV 08/18/18 01:19 DIRECT JACQUELYN Sodium Chloride 1,000 mls @ 50 mls/hr 08/16/18 14:00 08/16/18 13:24 Nacl 0.9% 1000 Ml IV 08/17/18 13:59 50 mls/hr DIRECT JACQUELYN Administration Ondansetron HCl 4 mg 08/15/18 14:33 Zofran IV Q8H PRN Nausea And Vomiting Pantoprazole Sodium 40 mg 08/15/18 16:00 08/16/18 09:29 Protonix IV 40 mg BID JACQUELYN Administration Sodium Chloride 10 ml 08/15/18 22:00 08/16/18 09:30 Sodium Chloride Flush Syringe 10 Ml IV 10 ml BID JACQUELYN Administration Sodium Chloride 10 ml 08/15/18 14:33 Sodium Chloride Flush Syringe 10 Ml IV PRN PRN LINE FLUSH
[2018-08-16] MEDS ORDERED: NACL 0.9% 1000 ML 1,000 ML IV SCH (14:00)
[2018-08-16] MEDS ORDERED: DIPRIVAN 10 MG/ML IV ONE (14:35)
[2018-08-16] MEDS ORDERED: VERSED ONE (14:35)
--- NOTE | 2018-08-16 14:38 | Anesthesia Day of Surgery ---
Anesthesia Day of Surgery - Day of Surgery Patient Examined: Yes Patient H&P Reviewed: Yes Patient is NPO: Yes
--- NOTE | 2018-08-16 14:38 | Anesthesia Consultation ---
Anesthesia Consult and Med Hx Date of service: 08/16/18 - Airway Anesthetic Teeth Evaluation: Good ROM Head & Neck: Adequate Mental/Hyoid Distance: Adequate Mallampati Class: Class II Intubation Access Assessment: Good - Pulmonary Exam CTA: Yes - Cardiac Exam Cardiac Exam: RRR - Pre-Operative Health Status ASA Pre-Surgery Classification: ASA3 Proposed Anesthetic Plan: MAC (Pt with duodenal obstruction for EGD) - Pulmonary Hx Asthma: No COPD: No Hx Pneumonia: No - Endocrine Hx End Stage Renal Disease: No
--- NOTE | 2018-08-16 15:06 | Post Operative Note ---
Pre-op diagnosis: Duodenal mass Post-op diagnosis: same Findings: 1. Normal esophagus 2. Stomach normal, with 350 ml bile suctioned out. 3. Obstructing friable duodenal mass with edema in 4th portion of duodenum, distal to the ampulla. Difficult to see well. Biopsied. Procedure: EGD with biopsy Anesthesia: MAC Surgeon: PIO PARR Estimated blood loss: minimal Pathology: list (1. Duodenal mass) Specimen disposition: to lab Condition: stable Disposition: floor (F/u pathology. Surgical management)
--- NOTE | 2018-08-16 15:58 | Operative Report ---
UPPER ENDOSCOPY REPORT PROCEDURE: Upper endoscopy with biopsy. PREOPERATIVE DIAGNOSIS: Duodenal mass. POSTOPERATIVE DIAGNOSIS: Duodenal mass. SEDATION: MAC by Anesthesia. HISTORY: The patient is a 58-year-old man who presented with a 2-week history of nausea and vomiting along with weight loss. CT shows mass in the duodenum with proximal obstruction. DESCRIPTION OF PROCEDURE: Indications, risks, and benefits were explained and consent was obtained. The patient was placed in left lateral decubitus position. Prior to the procedure, he had a NG tube placed where a total of 1.7 liters of bile were suctioned out. Scope was then advanced into the mouth and oropharynx into the descending duodenum. Scope was then gradually withdrawn with close inspection of mucosa. FINDINGS: 1. Normal appearing esophagus. 2. Gastric lumen at 350 mL of bile that were aspirated out. The gastric mucosa, however, looked normal throughout the whole stomach. 3. Normal appearing duodenal bulb. 4. In the fourth portion of the duodenum, well past the ampulla, the lumen was edematous and scope could not be readily passed through this area. It was friable. Biopsies were obtained. This was consistent with an obstructing process, though no firm mass was clearly identified. The patient tolerated the procedure well without immediate complication. IMPRESSION: 1. Fourth portion of the duodenum has obstruction consistent with probable mass that was friable. Biopsies were obtained. However, the area was edematous, precluding detailed evaluation. 2. Otherwise, normal endoscopy. PLAN: 1. Follow up biopsies. 2. Surgical management for possible resection or bypass. JOB# [id number] HRC/NTS
[2018-08-16] MEDS: D5W/NS W/KCL 20MEQ 20 MEQ/1,000 ML BAG IV SCH (16:12)
--- NOTE | 2018-08-16 17:05 | Progress Note ---
Assessment and Plan 58 yo M with obstructing duodenal mass s/p EGD 08/16/18 - 1. Normal esophagus 2. Stomach normal, with 350 ml bile suctioned out. 3. Obstructing friable duodenal mass with edema in 4th portion of duodenum, distal to the ampulla. Difficult to see well. Biopsied. Plan: 1. Keep NGT to LIWS 2. NPO 3. IVF 4. No evidence of metastatic disease on CT scan A/P or CXR 5. Recommend transfer to tertiary care center for surgical evaluation and treatment. Pt given option for [place] [facility] and [facility] and prefers [place] because it is closer to home. Will start transfer process in am. Thank you, please call with questions Subjective Date of service: 08/16/18 Narrative: Pt seen and examined. s/p endoscopy. Objective Vital Signs - 12hr 08/16/18 08/16/18 08/16/18 05:48 08:04 11:16 Temperature 98.6 F 98.1 F Pulse Rate 70 76 Respiratory 18 22 Rate Blood Pressure 104/78 113/82 O2 Sat by Pulse 96 97 98 Oximetry 08/16/18 08/16/18 08/16/18 13:15 13:19 14:55 Temperature 97.9 F 97.9 F 97 F L Pulse Rate 81 81 91 H Respiratory 18 18 16 Rate Blood Pressure 112/85 112/85 121/76 O2 Sat by Pulse 97 97 97 Oximetry 08/16/18 08/16/18 08/16/18 15:06 15:20 15:36 Temperature Pulse Rate 89 77 75 Respiratory 15 14 14 Rate Blood Pressure 124/70 128/62 110/76 O2 Sat by Pulse 96 95 95 Oximetry 08/16/18 15:47 Temperature Pulse Rate 78 Respiratory 18 Rate Blood Pressure 105/69 O2 Sat by Pulse 97 Oximetry - Labs 08/15/18 11:34 08/16/18 12:07 Diabetes panel 08/16/18 Range/Units 12:07 Sodium 141 (137-145) mmol/L Potassium 3.6 (3.6-5.0) mmol/L Chloride 100.3 (98-107) mmol/L Carbon Dioxide 21 L D (22-30) mmol/L BUN 14 (9-20) mg/dL Creatinine 1.0 (0.8-1.5) mg/dL Glucose 86 (75-100) mg/dL Calcium 9.1 (8.4-10.2) mg/dL Calcium panel 08/16/18 Range/Units 12:07 Calcium 9.1 (8.4-10.2) mg/dL Phosphorus 3.10 (2.5-4.5) mg/dL Pituitary panel 08/16/18 Range/Units 12:07 Sodium 141 (137-145) mmol/L Potassium 3.6 (3.6-5.0) mmol/L Chloride 100.3 (98-107) mmol/L Carbon Dioxide 21 L D (22-30) mmol/L BUN 14 (9-20) mg/dL Creatinine 1.0 (0.8-1.5) mg/dL Glucose 86 (75-100) mg/dL Calcium 9.1 (8.4-10.2) mg/dL Adrenal panel 08/16/18 Range/Units 12:07 Sodium 141 (137-145) mmol/L Potassium 3.6 (3.6-5.0) mmol/L Chloride 100.3 (98-107) mmol/L Carbon Dioxide 21 L D (22-30) mmol/L BUN 14 (9-20) mg/dL Creatinine 1.0 (0.8-1.5) mg/dL Glucose 86 (75-100) mg/dL Calcium 9.1 (8.4-10.2) mg/dL
[2018-08-17] MEDS: D5W/NS W/KCL 20MEQ 20 MEQ/1,000 ML BAG IV SCH (05:15)
[2018-08-17 09:10] LABS: BUN/Creatinine Ratio 13; Blood Urea Nitrogen 13 mg/dL (9-20); Calcium 8.7 mg/dL (8.4-10.2); Hemolysis Index 6
[2018-08-17] MEDS: PROTONIX IV SCH ×2 (09:12→21:14)
[2018-08-17] MEDS: LEVAQUIN 500MG/100ML 500 MG/100 ML BAG IV SCH (09:12)
[2018-08-17] MEDS: SODIUM CHLORIDE FLUSH SYRINGE 10 ML IV SCH ×2 (09:13→21:24)
--- NOTE | 2018-08-17 10:45 | Gastroenterology Progress Note ---
<FLOYD BRAND - Last Filed: 08/17/18 10:45> Assessment and Plan 1.N/V 2.inability to tolerate PO 3.wt loss 4.duodenal obstructing mass seen on CT 5.Fhx of gastric CA (father) -s/p EGD yesterday that revealed an obstructing friable duodenal mass with edema in 4th portion of duodenum, distal to the ampulla -bx results pending -No evidence of metastatic disease on CT scan A/P or CXR -clinically, patient is stable. Denies abd pain or N/V. -Keep NPO -NGT to LIS -continue -Keep NPO -NGT to LIS -continue supportive care -further management per surgery (surgery following with recommendation given to transfer patient to tertiary care center for surgical evaluation/intervention) -will sign off, and f/u path Subjective Date of service: 08/17/18 Principal diagnosis: dudenal mass with obstruction Interval history: Patient sitting on the side of the bed this am w/o acute distress and at bedside. Denies abd pain or N/V. NGT with minimal output. Objective - Constitutional Vitals: Temp Pulse Resp BP Pulse Ox 99.0 F 75 18 113/71 100 08/17/18 04:46 08/17/18 04:46 08/17/18 04:46 08/17/18 04:46 08/17/18 08:58 General appearance: no acute distress - EENT ENT: other (+NGT) - Respiratory Respiratory effort: normal Respiratory: bilateral: CTA - Cardiovascular Rhythm: regular - Gastrointestinal General gastrointestinal: Present: soft, non-tender, non-distended, hypoactive bowel sounds - Neurologic Neurological: alert and oriented x3 - Labs CBC & Chem 7: 08/17/18 08:18 08/17/18 08:18 Labs: Laboratory Results - last 24 hr 08/16/18 08/17/18 08/17/18 12:07 08:18 08:18 Hgb 14.0 Hct 41.0 Sodium 141 140 Potassium 3.6 3.6 Chloride 100.3 102.1 Carbon Dioxide 21 L D 25 Anion Gap 23 17 BUN 14 13 Creatinine 1.0 1.0 Estimated GFR > 60 > 60 BUN/Creatinine Ratio 14 13 Glucose 86 109 H Calcium 9.1 8.7 Phosphorus 3.10 Magnesium 2.20 <PIO PARR R - Last Filed: 08/17/18 12:32> Assessment and Plan Pt stable. Plans for transfer noted. Signing off. Objective - Constitutional Vitals: Temp Pulse Resp BP Pulse Ox 98.7 F 69 20 107/73 97 08/17/18 11:14 08/17/18 11:14 08/17/18 11:14 08/17/18 11:14 08/17/18 11:14 - Labs CBC & Chem 7: 08/17/18 08:18 08/17/18 08:18 Labs: Laboratory Results - last 24 hr 08/16/18 08/17/18 08/17/18 12:07 08:18 08:18 Hgb 14.0 Hct 41.0 Sodium 141 140 Potassium 3.6 3.6 Chloride 100.3 102.1 Carbon Dioxide 21 L D 25 Anion Gap 23 17 BUN 14 13 Creatinine 1.0 1.0 Estimated GFR > 60 > 60 BUN/Creatinine Ratio 14 13 Glucose 86 109 H Calcium 9.1 8.7 Phosphorus 3.10 Magnesium 2.20
--- NOTE | 2018-08-17 15:02 | Event Note ---
Date: 08/17/[address] Coto this am. Transfer process initiated to [facility]. Spoke with Dr. Karissa Colon (Surgeon exceptional children's teacher at [facility]) regarding the transfer. She will get in touch with hepatobiliary surgeon to discuss the case and call back if patient is accepted and the physicians information. Transfer forms filled out and diagnostic images burned to CD to send with patient. Explained plan to patient and his .
--- NOTE | 2018-08-17 15:48 | Progress Note ---
Assessment and Plan Patient is alert and oriented and offers no specific complaints in the room All questions answered Patient denies any nausea or vomiting or abdominal pain Chart reviewed Discussed with general surgery Also contacted [facility] transfer center and discussed with general surgeon at [facility] regarding transfer patient for further evaluation for possible Whipple surgery Physical examination HEENT; normocephalic pupils are round reacting to light extraocular movements intact throat is clear Neck is supple no significant adenopathy Lungs clear to auscultation Heart S1-S2 regular rate and rhythm Abdomen is soft nontender no hepatosplenomegaly Extremities 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 no leg 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 and situation no focal deficit Laboratory results reviewed DVT prophylaxis heparin subcutaneous Assessment and plan Friable mass in the transverse duodenum Status post biopsy Results pending Awaiting acceptance by [facility] Hypokalemia Improved Subjective Date of service: 08/17/18 Principal diagnosis: dudenal mass with obstruction Objective - Constitutional Vitals: Vital Signs - 12hr 08/17/18 08/17/18 08/17/18 04:46 08:58 11:14 Temperature 99.0 F 98.7 F Pulse Rate 75 69 Respiratory 18 20 Rate Blood Pressure 113/71 107/73 O2 Sat by Pulse 97 100 97 Oximetry - Labs CBC & Chem 7: 08/17/18 08:18 08/17/18 08:18 Labs: Abnormal lab results 08/17/18 Range/Units 08:18 Glucose 109 H (75-100) mg/dL
[2018-08-17] MEDS: D5W/0.45% NACL/KCL 20 MEQ 20 MEQ/1,000 ML BAG IV SCH (21:14)
[2018-08-18] MEDS: PROTONIX IV SCH ×2 (09:23→22:17)
[2018-08-18] MEDS: SODIUM CHLORIDE FLUSH SYRINGE 10 ML IV SCH ×2 (09:23→22:17)
[2018-08-18] MEDS: LEVAQUIN 500MG/100ML 500 MG/100 ML BAG IV SCH (09:23)
[2018-08-18] MEDS: D5W/0.45% NACL/KCL 20 MEQ 20 MEQ/1,000 ML BAG IV SCH (09:26)
--- NOTE | 2018-08-18 09:38 | Progress Note ---
Assessment and Plan Assessment and Plan Patient is alert and oriented and offers no specific complaints in the room All questions answered Patient denies any nausea or vomiting or abdominal pain Chart reviewed Discussed with general surgery Also contacted [facility] transfer center and discussed with general surgeon at [facility] regarding transfer patient for further evaluation for possible Whipple surgery Physical examination HEENT; normocephalic pupils are round reacting to light extraocular movements intact throat is clear Neck is supple no significant adenopathy Lungs clear to auscultation Heart S1-S2 regular rate and rhythm Abdomen is soft nontender no hepatosplenomegaly Extremities there is no leg edema 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 place and situation no focal deficit Laboratory results reviewed DVT prophylaxis heparin subcutaneous Assessment and plan Friable mass in the transverse duodenum Status post biopsy Results pending Awaiting acceptance by [facility] Hypokalemia Improved Subjective Date of service: 08/18/18 Principal diagnosis: dudenal mass with obstruction Objective - Constitutional Vitals: Vital Signs - 12hr 08/17/18 08/18/18 23:08 04:56 Temperature 98.9 F 98.5 F Pulse Rate 71 62 Respiratory 16 16 Rate Blood Pressure 117/75 117/72 O2 Sat by Pulse 96 98 Oximetry General appearance: Present: no acute distress, well-nourished - EENT Eyes: PERRL, EOM intact ENT: hearing intact, clear oral mucosa Ears: bilateral: normal - Neck Neck: supple, normal ROM - Respiratory Respiratory effort: normal Respiratory: bilateral: CTA - Breasts Breasts: normal - Cardiovascular Rhythm: regular Heart Sounds: Present: S1 & S2. Absent: gallop, rub Extremities: pulses intact, No edema, normal color, Full ROM - Gastrointestinal General gastrointestinal: Present: soft, non-tender, non-distended, normal bowel sounds - Genitourinary Male genitourinary: normal - Integumentary Integumentary: clear, warm, dry - Musculoskeletal Musculoskeletal: 1, strength equal bilaterally - Neurologic Neurologic: moves all extremities - Psychiatric Psychiatric: memory intact, appropriate mood/affect, intact judgment & insight - Labs CBC & Chem 7: 08/17/18 08:18 08/17/18 08:18
--- NOTE | 2018-08-18 12:22 | Event Note ---
Date: 08/18/18 Patient is s/p EGD that revealed an obstructing friable duodenal mass with edema in 4th portion of duodenum, distal to the ampulla. Path results showed moderately differentiated adenocarcinoma. Patient is currently awaiting transfer to [facility] for surgical intervention (possible Whipple surgery). Further management per surgery/oncology. GI will sign off, please call if needed.
--- NOTE | 2018-08-18 15:57 | Progress Note ---
Assessment and Plan 58 yo M with obstructing duodenal mass s/p EGD 08/16/18 - 1. Normal esophagus 2. Stomach normal, with 350 ml bile suctioned out. 3. Obstructing friable duodenal mass with edema in 4th portion of duodenum, distal to the ampulla. Difficult to see well. Biopsied. Pathology: moderately differentiated adenocarcinoma Plan: 1. Keep NGT to LI 2. NPO 3. IVF 4. PICC line consult 5. start TPN 6. No evidence of metastatic disease on CT scan A/P or CXR 7. Recommend transfer to tertiary care center. Pt given option for [facility] and [facility] and prefers [facility] because it is closer to home. Transfer process has been initiated and all document sent to [facility] transfer center as requested. I spoke with Dr. Karissa Colon, General surgeon at [facility] regarding transfer. Dr. Colon notified me today that hepatobiliary surgeon is reviewing the case but transfer will likely not happen over the weekend. D/W Dr. Edwards Thank you, please call with questions Subjective Date of service: 08/18/18 Narrative: Pt seen and examined. No complaints. Had a BM Objective Vital Signs - 12hr 08/18/18 08/18/18 04:56 12:02 Temperature 98.5 F 98.2 F Pulse Rate 62 66 Respiratory 16 20 Rate Blood Pressure 117/72 124/72 O2 Sat by Pulse 98 94 Oximetry - General physical appearance Narrative Exam: Gen: AAOx3. NAD ENT: NGT with bilious output CV: s1, S2+ resp; even and unlabored Abd: soft Ext: no c/c/e - Labs 08/17/18 08:18 08/17/18 08:18
--- NOTE | 2018-08-18 17:49 | Event Note ---
Date: 08/18/18 Received a phone call from [facility] and spoke with Dr Emely Florence hepatobiliary surgeon regarding the patient. We discussed the patient's case and Dr. Florence has accepted the patient for transfer. He requested that the patient be transferred as soon as possible and a bed request was placed by [facility] transfer center. I notified the patient as well as doctor Grace. I also discussed this with the patients RN Roberto. Transfer paperwork had already been signed by the patient and physician. Doctor Edwards will discharge the patient to [facility].
--- NOTE | 2018-08-18 21:04 | Discharge Summary ---
Providers - Providers Date of Admission: 08/15/18 14:33 Date of discharge: 08/18/18 Attending physician: SHAHBAZ CASAS 08/15/18 14:42 Consult to Physician [CONS] Urgent Comment: Consulting Provider: PIO DINERO Physician Instructions: Reason For Exam: duodenal mass with obstruction 08/15/18 15:21 Consult to Physician [CONS] Routine Comment: Consulting Provider: DOV CASTILLO Physician Instructions: consult surgery Reason For Exam: duodenal obstructing mass 08/18/18 14:50 Consult to Dietitian/Nutrition [CONS] Routine Physician Instructions: Reason For Exam: Reason for Consult: Write/Manage TPN/PPN Primary care physician: SHELBY WALKER Hospitalization Condition: Fair Procedures: EGD with biopsy done on 08/17/[address] Dinero 1. Normal esophagus 2. Stomach normal, with 350 ml bile suctioned out. 3. Obstructing friable duodenal mass with edema in 4th portion of duodenum, distal to the ampulla. Difficult to see well. Biopsied. Hospital course: History of present illness: 58 YO Male with BPH S/P Prostate Surgery presents to ED for nausea and multiple episodes of vomiting, and inability to tolerate solid food over the past 2 weeks with persistent symptoms over the same time frame. Pt acknowledges 40lbs weight loss over the past 2 months. Pt denies fever, chills, productive cough, CP, Palpitations, known ill contacts, ingestion of food/water from new/different sources. Pt acknowledges family history of cancer, with history of Gastric Cancer in his father. Pt seen and evaluated in ED and found to have Duodenal mass suspicious for malignancy as well as bowel obstruction, as well as UTI. Pt admitted to medical floor. GI consulted in ED. No prior admission for review. No medication listed for reconciliation at time of admission. Past History Past Medical History: other (BPH) Past Surgical History: Other (Cervical spine,Prostate surgery) Social history: , lives with family Family history: cancer Assessment and plan 1)Friable mass in the transverse duodenum Status post biopsy Results pending Awaiting acceptance by [facility] 2)Hypokalemia Improved "Plan per Dr Singh--Surgery 1. Keep NGT to LIWS 2. NPO 3. IVF 4. PICC line consult 5. start TPN 6. No evidence of metastatic disease on CT scan A/P or CXR 7. Recommend transfer to tertiary care center. Pt given option for [facility] and [facility] and prefers [facility] because it is closer to home. Transfer process has been initiated and all document sent to [facility] transfer center as requested. I spoke with Dr. Karissa Colon, General surgeon at [facility] regarding transfer. Dr. Colon notified me today that hepatobiliary surgeon is reviewing the case but transfer will likely not happen over the weekend." Jelani Florence is the accepting Surgeon. Maybe transferred today Disposition: [id number]/[id number] ANOTHER TYPE THCARE Core Measure Documentation - Palliative Care Palliative Care/ Comfort Measures: Not Applicable - Core Measures Any of the following diagnoses?: none Exam - Constitutional Vitals: Temp Pulse Resp BP Pulse Ox 98.7 F 68 20 136/78 98 08/18/18 17:20 08/18/18 17:20 08/18/18 17:20 08/18/18 17:20 08/18/18 19:35 Plan Follow up with: DAISY MENDEZ MD [Referring] - 7 Days
[2018-08-18 23:36] VITALS: BP 115/66
--- NOTE | 2018-08-19 05:44 | Progress Note ---
Assessment and Plan Assessment and plan Friable mass in the transverse duodenum Status post biopsy Results pending Awaiting acceptance by [facility] Hypokalemia treated Subjective Date of service: 08/18/18 Principal diagnosis: dudenal mass with obstruction Interval history: Same condition Objective - Constitutional Vitals: Vital Signs - 12hr 08/18/18 08/18/18 08/18/18 19:35 22:00 23:09 Temperature 98.7 F Pulse Rate 66 Respiratory 19 16 Rate Blood Pressure 115/66 O2 Sat by Pulse 98 98 97 Oximetry General appearance: Present: no acute distress, well-nourished - EENT Eyes: PERRL, EOM intact ENT: hearing intact, clear oral mucosa Ears: bilateral: normal - Neck Neck: supple, normal ROM - Respiratory Respiratory effort: normal Respiratory: bilateral: CTA - Breasts Breasts: normal - Cardiovascular Rhythm: regular Heart Sounds: Present: S1 & S2. Absent: gallop, rub Extremities: pulses intact, No edema, normal color, Full ROM - Gastrointestinal General gastrointestinal: Present: soft, non-tender, non-distended, normal bowel sounds - Genitourinary Male genitourinary: normal - Integumentary Integumentary: clear, warm, dry - Musculoskeletal Musculoskeletal: 1, strength equal bilaterally - Neurologic Neurologic: moves all extremities - Psychiatric Psychiatric: memory intact, appropriate mood/affect, intact judgment & insight - Labs CBC & Chem 7: 08/17/18 08:18 08/17/18 08:18
== END 2018-08-19 01:20 | disposition short-term general hospital (02) | DRG 375 ==
LOC: ED 11:05 → 3A 14:33
PROVIDERS: ADMIT Internal Medicine; ATTEND Internal Medicine
PROC: 0D9670Z Drainage of Stomach with Drainage Device, Via Natural or Artificial Opening (ICD-10-PCS; principal; 2018-08-16)
PROC: 0DB98ZX Excision of Duodenum, Via Natural or Artificial Opening Endoscopic, Diagnostic (ICD-10-PCS; 2018-08-16)
DX: C17.0 Malignant neoplasm of duodenum (principal); K56.609 Unspecified intestinal obstruction, unspecified as to partial versus complete obstruction; N39.0 Urinary tract infection, site not specified; Q43.9 Congenital malformation of intestine, unspecified; E87.6 Hypokalemia; G89.29 Other chronic pain; M54.9 Dorsalgia, unspecified; K31.9 Disease of stomach and duodenum, unspecified
CPT/HCPCS: 36415; 71046; 74177; 80048; 80076; 81001; 82962; 83690; 83735; 84100; 85014; 85018; 85025; 87086; 88305; 96365; 96375; G0378; C9113; J1956; J2060; J2250; J2270; J2704; J7030; Q9967